=== PATIENT | female | born 1985 | race Two or more races ===

== ENCOUNTER 2016-12-15 15:40 | Emergency (ER) | payer OTHER ==
--- NOTE | 2016-12-15 17:01 | ER Document Report ---
ED Medical Screen (RME) - General Chief Complaint: Headache Stated Complaint: CHEST PAIN Time seen by provider: 16:56 Mode of Arrival: Ambulatory Information source: Patient Notes: 31-year-old female complaining of confusion (slow processing of talking and direction to walk) at 10 am while she was at [facility]. Vision is a little blurred, very tired, left flank pain (3:30 pm), tight sharp chest discomfort (1 pm), frontal headache., Yawning, frequent hiccups.. No fever or chills. No cough. No dysuria. lLMP: yesterday. ETOH 4-5 times a week- 2 glasses of wine last night. Smokes marijuana. Went to [facility] to get checked there but they sent her here because they didn't have the ability to do blood work test. I have greeted and performed a rapid initial assessment of this patient. A comprehensive ED assessment, evaluation of the patient, analysis of test results , and completion of the medical decision making process will be conducted by additional ED providers. - Related Data Allergies/Adverse Reactions: No Known Allergies Allergy (Unverified 05/14/14 18:13) Past Medical History Psychiatric Medical History: Reports: Hx Anxiety, Hx Depression - Immunizations Hx Diphtheria, Pertussis, Tetanus Vaccination: Yes Physical Exam - Vital signs Vitals: Temp Pulse Resp BP Pulse Ox 98.7 F 81 14 117/77 97 12/15/16 15:44 12/15/16 15:44 12/15/16 15:44 12/15/16 15:44 12/15/16 15:44 Course - Vital Signs Vital signs: Temp Pulse Resp BP Pulse Ox 98.7 F 81 14 117/77 97 12/15/16 15:44 12/15/16 15:44 12/15/16 15:44 12/15/16 15:44 12/15/16 15:44
[2016-12-15 18:26] LABS: ABSOLUTE BASOPHILS # (AUTO) 0.1 10^3/uL (0.0-0.2); ABSOLUTE EOSINOPHILS # (AUTO) 0.3 10^3/uL (0.0-0.6); ABSOLUTE LYMPHOCYTES (AUTO) 3.7 10^3/uL (0.5-4.7); ABSOLUTE MONOCYTES (AUTO) 0.8 10^3/uL (0.1-1.4); ABSOLUTE NEUT (AUTO) 2.7 10^3/uL (1.7-8.2); BASOPHILS % (AUTO) 1.3 % (0-2); EOSINOPHILS % (AUTO) 3.6 % (0-6); HEMATOCRIT 44.1 % (36.0-47.0); HEMOGLOBIN 15.5 g/dL (12.0-15.5); HGB HCT DIFFERENCE 2.4; LYMPHOCYTES % (AUTO) 48.6 % (13-45); MEAN CORPUSCULAR HEMOGLOBIN 29.1 pg (27.0-33.4); MEAN CORPUSCULAR HGB CONC 35.2 g/dL (32.0-36.0); MEAN CORPUSCULAR VOLUME 83 fl (80-97); MONOCYTES % (AUTO) 10.6 % (3-13); RED BLOOD COUNT 5.34 10^6/uL (3.72-5.28); RED CELL DISTRIBUTION WIDTH 12.8 % (11.5-14.0); SEGMENTED NEUTROPHILS % (AUTO) 35.9 % (42-78); WHITE BLOOD COUNT 7.6 10^3/uL (4.0-10.5)
[2016-12-15 18:45] LABS: ALANINE AMINOTRANSFERASE 31 U/L (9-52); ALKALINE PHOSPHATASE 56 U/L (38-126); ANION GAP 13 (5-19); ASPARTATE AMINO TRANSFERASE 31 U/L (14-36); BILIRUBIN,DIRECT 0.2 mg/dL (0.0-0.4); BILIRUBIN,TOTAL 0.7 mg/dL (0.2-1.3); BLOOD UREA NITROGEN 8 mg/dL (7-20); CALCIUM 10.2 mg/dL (8.4-10.2); CARBON DIOXIDE 38 mmol/L (22-30); CHLORIDE 86 mmol/L (98-107); CREATINE KINASE 71 U/L (30-135); CREATININE RESULT 0.84 mg/dL (0.52-1.25); GLUCOSE 97 mg/dL (75-110); LIPASE 83.7 U/L (23-300); POTASSIUM 3.1 mmol/L (3.6-5.0); SODIUM 137.3 mmol/L (137-145); TOTAL PROTEIN 8.6 g/dL (6.3-8.2)
[2016-12-15 18:47] LABS: APPEARANCE,URINE CLEAR; BILIRUBIN,URINE NEGATIVE (NEGATIVE); GLUCOSE, URINE NEGATIVE (NEGATIVE); KETONES,URINE NEGATIVE (NEGATIVE); LEUKOCYTE ESTERASE,URINE NEGATIVE (NEGATIVE); NITRITE,URINE NEGATIVE (NEGATIVE); PROTEIN,URINE 30 mg/dL (NEGATIVE); URINE BARBITURATES SCREEN NEGATIVE; URINE METHADONE SCREEN NEGATIVE; URINE OPIATES LOW NEGATIVE; URINE PHENCYCLIDINE SCREEN NEGATIVE; URINE SPECIFIC GRAVITY 1.011; UROBILINOGEN,URINE NEGATIVE mg/dL (<2.0)
[2016-12-15 18:57] LABS: CREATINE KINASE MB < 0.22 ng/mL (<4.55); TROPONIN I < 0.012 ng/mL
[2016-12-15] MEDS ORDERED: NORMAL SALINE 1000 ML 1,000 ML IV ONE (19:25)
[2016-12-15] MEDS ORDERED: POTASSIUM CHLORIDE 20 MEQ/15 ML UDCUP PO ONE (19:26)
--- NOTE | 2016-12-15 20:34 | ER Document Report ---
ED General - General Chief Complaint: Shortness Of Breath Stated Complaint: CHEST PAIN Mode of Arrival: Ambulatory Information source: Patient Notes: 31 y/o well appearing F presents to ED c/o generalized weakness and fatigue since this morning. Pt reports noted symptoms this morning while at work. States she felt tired, fatigued, and unsteady on her feet. Reports had associated mild headache and blurred vision. States headache and blurred vision has resolved and rest of symptoms are much better but still feels fatigued. Reports hx of anxiety not on medication and states has been having more frequent attacks but does not feel like she is having one today. Denies fever, difficulty breathing, chest pain, n/v. States started her menstrual period yesterday and is unsure if symptoms may be due to that. TRAVEL OUTSIDE OF THE [place] IN LAST 30 DAYS: No - HPI Onset: This morning Onset/Duration: Gradual Quality of pain: No pain Similar symptoms previously: Yes Recently seen / treated by doctor: No - Related Data Allergies/Adverse Reactions: No Known Allergies Allergy (Unverified 05/14/14 18:13) Past Medical History - General Information source: Patient - Social History Smoking Status: Current Every Day Smoker Cigarette use (# per day): Yes - 10 cigarettes per day Frequency of alcohol use: 3 drinks per day Drug Abuse: Marijuana Lives with: Family Family History: Reviewed & Not Pertinent Patient has suicidal ideation: No Patient has homicidal ideation: No Renal/ Medical History: Denies: Hx Peritoneal Dialysis Psychiatric Medical History: Reports: Hx Anxiety, Hx Depression Surgical Hx: Negative - Immunizations Hx Diphtheria, Pertussis, Tetanus Vaccination: Yes Review of Systems - Review of Systems Constitutional: See HPI EENT: No symptoms reported Cardiovascular: No symptoms reported Respiratory: No symptoms reported Gastrointestinal: No symptoms reported Genitourinary: No symptoms reported Female Genitourinary: No symptoms reported Musculoskeletal: No symptoms reported Skin: No symptoms reported Hematologic/Lymphatic: No symptoms reported Neurological/Psychological: See HPI -: Yes All other systems reviewed and negative Physical Exam - Vital signs Vitals: Temp Pulse Resp BP Pulse Ox 98.7 F 81 14 117/77 97 12/15/16 15:44 12/15/16 15:44 12/15/16 15:44 12/15/16 15:44 12/15/16 15:44 Interpretation: Normal - General General appearance: Appears well, Alert In distress: None - HEENT Head: Normocephalic, Atraumatic Eyes: Normal Conjunctiva: Normal Extraocular movements intact: Yes Eyelashes: Normal Pupils: PERRL Ears: Normal External canal: Normal Tympanic membrane: Normal Sinus: Normal Nasal: Normal Mouth/Lips: Normal Mucous membranes: Normal, Moist Pharynx: Normal. No: Blood in hypopharynx, Erythema, Exudate, Peritonsillar abscess, Post nasal drainage, Retropharyngeal abscess, Tonsillar hypertrophy, Uvular edema, Potential airway comprom., Other Neck: Normal. No: Anterior cervical chain, Posterior cervical chain, Lymphadenopathy, Meningismus, Subcutaneous emphysema - Respiratory Respiratory status: No respiratory distress Chest status: Nontender Breath sounds: Normal - CTAB Chest palpation: Normal - Cardiovascular Rhythm: Regular Heart sounds: Normal auscultation Murmur: No Pulses: Normal: Radial Normal capillary refill: Yes - Abdominal Inspection: Normal Distension: No distension Bowel sounds: Normal Tenderness: Nontender Organomegaly: No organomegaly - Back Back: Normal, Nontender. No: CVA tenderness - Extremities General upper extremity: Normal inspection, Nontender, Normal color, Normal ROM , Normal strength, Normal temperature. No: Tender, Edema General lower extremity: Normal inspection, Normal color, Normal ROM, Normal strength, Normal temperature, Normal weight bearing. No: Tender, Edema, Georgina' s sign - Neurological Neuro grossly intact: Yes Cognition: Normal Orientation: AAOx4 [place] Coma Scale Eye Opening: Spontaneous [place] Coma Scale Verbal: Oriented [place] Coma Scale Motor: Obeys Commands Mono Coma Scale Total: 15 Speech: Normal Cranial nerves: Normal Cerebellar coordination: Normal Motor strength normal: LUE, RUE, LLE, RLE Additional motor exam normals: Equal valet Sensory: Normal - Psychological Associated symptoms: Normal affect, Normal mood - Skin Skin Temperature: Warm Skin Moisture: Dry Skin Color: Normal Course - Re-evaluation Re-evalutation: 12/15/16 20:35 Patient very well-appearing, neurologically intact, hemodynamically stable, in no distress, afebrile, nontoxic, and appears well-hydrated. Mild hypokalemia on labs otherwise unremarkable. Chest x-ray with no significant or emergent findings and EKG shows sinus rhythm unchanged from previous 3 years ago. Patient is very well-appearing with nonspecific/vague symptoms not suggestive of emergent neurologic, vascular, or infectious etiology at this time. Pt presentation and findings were discussed with ED physician Dr. Dominique who recommends PO potassium supplementation in ED and follow-up with pcp this week. Patient appears stable for discharge and agrees with home care, follow-up, and ED return precautions. - Vital Signs Vital signs: Temp Pulse Resp BP Pulse Ox 98 F 72 14 110/66 98 12/15/16 21:00 12/15/16 21:00 12/15/16 21:00 12/15/16 21:00 12/15/16 21:00 - Laboratory Result Diagrams: 12/15/16 18:12 12/15/16 18:12 Laboratory results interpreted by me: 12/15/16 12/15/16 12/15/16 18:12 18:12 18:12 RBC 5.34 H Seg Neutrophils % 35.9 L Lymphocytes % 48.6 H Potassium 3.1 L Chloride 86 L Carbon Dioxide 38 H Total Protein 8.6 H Urine Protein 30 H Urine Blood MODERATE H Urine Ascorbic Acid 40 H - Diagnostic Test Radiology reviewed: Image reviewed, Reports reviewed - EKG Interpretation by Me EKG shows normal: Sinus rhythm, [place], Intervals, QRS Complexes, ST-T Waves Rate: Normal Rhythm: NSR When compared to previous EKG there are: No significant change Discharge - Discharge Clinical Impression: Hypokalemia Condition: Stable Disposition: HOME, SELF-CARE Instructions: Hypokalemia ([facility]), Weakness ([facility]), Family Physicians / Practices Additional Instructions: Drink plenty of fluids. Eat a diet with plenty of foods high in potassium. Follow-up with your primary care provider this week. Return to the Emergency Department for any worsening symptoms or concerns. Forms: Return to Work
[2016-12-15 21:22] VITALS: BP 110/66
--- NOTE | 2016-12-16 00:17 | EKG REPORT ---
SEVERITY:- NORMAL ECG - SINUS RHYTHM : Confirmed by: Sara Tidwell 16-Dec-2016 00:16:17
== END 2016-12-15 21:00 | disposition home or self-care (01) ==
LOC: ER 15:40
DX: E87.6 Hypokalemia (principal); R53.1 Weakness; R53.83 Other fatigue; R26.81 Unsteadiness on feet; F17.210 Nicotine dependence, cigarettes, uncomplicated
CPT/HCPCS: 36415; 71020; 80053; 80307; 81001; 82550; 82553; 83690; 84484; 84703; 85025; 87086; 87088; 87186; 93005; 93010; 99285

== ENCOUNTER → 2017-02-23 | Outpatient (CLI) | payer OTHER ==
[2017-02-23 10:33] LABS: ABSOLUTE BASOPHILS # (AUTO) 0.1 10^3/uL (0.0-0.2); ABSOLUTE EOSINOPHILS # (AUTO) 0.2 10^3/uL (0.0-0.6); ABSOLUTE LYMPHOCYTES (AUTO) 2.7 10^3/uL (0.5-4.7); ABSOLUTE MONOCYTES (AUTO) 0.7 10^3/uL (0.1-1.4); ABSOLUTE NEUT (AUTO) 4.6 10^3/uL (1.7-8.2); BASOPHILS % (AUTO) 1.5 % (0-2); EOSINOPHILS % (AUTO) 2.1 % (0-6); HEMATOCRIT 44.1 % (36.0-47.0); HEMOGLOBIN 14.5 g/dL (12.0-15.5); HGB HCT DIFFERENCE -0.6; MEAN CORPUSCULAR HEMOGLOBIN 28.4 pg (27.0-33.4); MEAN CORPUSCULAR HGB CONC 32.9 g/dL (32.0-36.0); MEAN CORPUSCULAR VOLUME 86 fl (80-97); MONOCYTES % (AUTO) 8.4 % (3-13); RED BLOOD COUNT 5.11 10^6/uL (3.72-5.28); RED CELL DISTRIBUTION WIDTH 13.1 % (11.5-14.0); WHITE BLOOD COUNT 8.3 10^3/uL (4.0-10.5)
[2017-02-23 11:03] LABS: ALANINE AMINOTRANSFERASE 36 U/L (9-52); ALBUMIN 4.3 g/dL (3.5-5.0); ALKALINE PHOSPHATASE 58 U/L (38-126); ANION GAP 12 (5-19); ASPARTATE AMINO TRANSFERASE 30 U/L (14-36); BILIRUBIN,DIRECT 0.3 mg/dL (0.0-0.4); BILIRUBIN,TOTAL 0.5 mg/dL (0.2-1.3); BLOOD UREA NITROGEN 6 mg/dL (7-20); CALCIUM 9.4 mg/dL (8.4-10.2); CARBON DIOXIDE 28 mmol/L (22-30); CHLORIDE 102 mmol/L (98-107); CHOLESTEROL 134.01 mg/dL (0-200); CREATININE RESULT 0.69 mg/dL (0.52-1.25); Direct HDL 48 mg/dL (>40); GLUCOSE 79 mg/dL (75-110); MAGNESIUM 2.1 mg/dL (1.6-2.3); POTASSIUM 4.4 mmol/L (3.6-5.0); SODIUM 141.9 mmol/L (137-145); TOTAL PROTEIN 7.5 g/dL (6.3-8.2); TRIGLYCERIDES 145 mg/dL (<150)
[2017-02-23 11:14] LABS: DIRECT LDL 54 mg/dL (<100)
== END ==
LOC: OD 09:52
PROVIDERS: ATTEND Family Medicine Geriatric Medicine
DX: R53.83 Other fatigue (principal); E87.6 Hypokalemia; F41.9 Anxiety disorder, unspecified; F32.9 Major depressive disorder, single episode, unspecified; Z79.899 Other long term (current) drug therapy
CPT/HCPCS: 36415; 80053; 80061; 83735; 84443; 85025

== ENCOUNTER → 2017-02-25 | Outpatient (CLI) | payer OTHER | LOC: OD 13:12 | PROVIDERS: ATTEND Family Medicine Geriatric Medicine | DX: R94.6 Abnormal results of thyroid function studies (principal); Z79.899 Other long term (current) drug therapy | CPT/HCPCS: 36415; 84443 ==

== ENCOUNTER → 2017-09-29 | Outpatient (CLI) | payer BC ==
--- NOTE | 2017-09-29 13:17 | RADIOLOGY REPORT (SQ) ---
EXAM DESCRIPTION: LUMBAR SPINE COMPLETE COMPLETED DATE/TIME: 09/29/2017 11:36 am REASON FOR STUDY: LOW BACK PAIN M54.5 LOW BACK PAIN COMPARISON: None. NUMBER OF VIEWS: Five views including obliques. TECHNIQUE: AP, lateral, oblique, and sacral radiographic images acquired of the lumbar spine. LIMITATIONS: None. FINDINGS: MINERALIZATION: Normal. SEGMENTATION: Normal. No transitional anatomy. ALIGNMENT: Normal. VERTEBRAE: Maintained height. No fracture or worrisome bone lesion. DISCS: Preserved height. No significant osteophytes or end plate irregularity. POSTERIOR ELEMENTS: Pedicles and facets are intact. No pars defect or posterior arch defects. There is mild left facet arthropathy at L4-5 HARDWARE: None in the spine. PARASPINAL SOFT TISSUES: Normal. PELVIS: Intact as visualized. No fractures or worrisome bone lesions. SI joints intact. OTHER: No other significant finding. IMPRESSION: Lower lumbar facet arthropathy on the left at L4-5 TECHNICAL DOCUMENTATION: JOB ID: [id number] [employer]- All Rights Reserved
== END ==
LOC: OD 11:20
PROVIDERS: ATTEND Family Medicine
DX: M54.5 Low back pain (principal); M12.88 Other specific arthropathies, not elsewhere classified, other specified site
CPT/HCPCS: 72110

== ENCOUNTER 2020-08-17 10:42 | Emergency (ER) | payer BC, OTHER ==
[2020-08-17] MEDS ORDERED: ADENOSINE INJ/PF 6 MG/2 ML SDV IV ONE ×2 (11:10→11:16)
--- NOTE | 2020-08-17 11:16 | EKG REPORT ---
SEVERITY:- ABNORMAL ECG - SUPRAVENTRICULAR TACHYCARDIA ST DEPRESSION, PROBABLY RATE RELATED : Confirmed by: Patrick Colbert MD 17-Aug-2020 11:16:12
[2020-08-17] MEDS ORDERED: NORMAL SALINE 1000 ML 1,000 ML IV ONE (11:17)
--- NOTE | 2020-08-17 12:05 | ER Document Report ---
Entered by TEX ONEAL SCRIBE 08/17/20 1109 Acting as scribe for:PHONG GONZALEZ MD ED Cardiac - General Chief Complaint: Irregular Pulse Stated Complaint: FAST/IRREGULAR HEART RATE Time Seen by Provider: 08/17/20 10:51 Primary Care Provider: LEVAR CHACON MD [ACTIVE STAFF] - Follow up as needed Mode of Arrival: Ambulatory Information source: Patient Notes: This 35 year old female patient presents to the emergency department today with complaints of a heart racing sensation which began 1 hour prior to arrival. Patient states that she has had episodes like this in the past but mentions that they have all resolved without medical care, never lasting longer than 1 hour. Patient denies excessive caffeine usage. TRAVEL OUTSIDE OF THE [place] IN LAST 30 DAYS: No - Related Data Allergies/Adverse Reactions: No Known Allergies Allergy (Unverified 05/14/14 18:13) Past Medical History - General Information source: Patient - Social History Smoking Status: Current Every Day Smoker Cigarette use (# per day): Yes Frequency of alcohol use: Social - two glasses of wine daily Occupation: car sales Lives with: Family Family History: Reviewed & Not Pertinent Psychiatric Medical History: Reports: Hx Anxiety, Hx Depression Surgical Hx: Negative - Immunizations Hx Diphtheria, Pertussis, Tetanus Vaccination: Yes Review of Systems - Review of Systems Constitutional: No symptoms reported EENT: No symptoms reported Cardiovascular: See HPI, Palpitations, Heart racing Respiratory: No symptoms reported Gastrointestinal: No symptoms reported Genitourinary: No symptoms reported Female Genitourinary: No symptoms reported Musculoskeletal: No symptoms reported Skin: No symptoms reported Hematologic/Lymphatic: No symptoms reported Neurological/Psychological: No symptoms reported -: Yes All other systems reviewed and negative Physical Exam - Notes Notes: Physical Exam: General: Alert, appears well. HEENT: Normocephalic. Atraumatic. PERRL. Extraocular movements intact. Oropharynx clear. Neck: Supple. Non-tender. Respiratory: No respiratory distress. Clear and equal breath sounds bilaterally. Cardiovascular: Tachycardic in the 190s. Abdominal: Normal Inspection. Non-tender. No distension. Normal Bowel Sounds. Back: No gross abnormalities. Extremities: Moves all four extremities. Upper extremities: Normal inspection. Normal ROM. Lower extremities: Normal inspection. No edema. Normal ROM. Neurological: Normal cognition. AAOx4. Normal speech. Psychological: Normal affect. Normal Mood. Skin: Warm. Dry. Normal color. Course - Re-evaluation Re-evalutation: 08/17/20 11:17 Patient was given Adenocard 6 mg IV push, she converted to a sinus tachycardia and currently her rate is 106. 08/17/20 12:07 Patient remains in sinus rhythm. Heart rate is 104. She states she feels fine and is anxious to leave to go back to work. 08/17/20 12:42 I had the nurse stand the patient up she how well she tolerated it. Her heart rate went up to 122, and she felt a little lightheaded. We will give her an additional liter of fluid and then reevaluate. - EKG Interpretation by Me EKG shows normal: Sinus rhythm, [place], Intervals, QRS Complexes, ST-T Waves Rate: Tachycardia Rhythm: SVT Discharge - Discharge Clinical Impression: Supraventricular tachycardia Condition: Stable Disposition: HOME, SELF-CARE Additional Instructions: Palpitations (Irregular/Rapid Heartrate): Irregular or rapid heartbeat is called "palpitation." To diagnose the cause of palpitation, we have to "catch it in the act" with an EKG. Sinus Tachycardia: This is a rapid (but NORMAL) rhythm that can be due to fever, pain, anxiety, lack of sleep, over-exertion, or drugs. Cold medications, caffeine, and diet pills are particularly likely to cause tachycardia. Usually, all that's required is rest, reassurance, and avoiding caffeine, alcohol, nicotine, and unnecessary medicines. Paroxysmal Atrial Tachycardia (PAT) also called Supraventricular Tachycardia(SVT): This abnormally rapid heartbeat is caused by a "short circui t" in the electrical system of the heart. It is not dangerous, unless other heart disease is present. These attacks of PAT/SVT may occur occasionally for years. Medication is available for treatment. Be sure to drink plenty of fluids today. Try to avoid caffeine. Get plenty of sleep at nighttime. You can try a Valsalva technique like we discussed if you have another episode of the fast heart rate. Follow-up with a local primary care provider or with a local twisting machine operator if you continue having these episodes. Dr. Levar Chacon is the twisting machine operator on-call today and his contact information will be provided. RETURN TO THE EMERGENCY ROOM IF ANY NEW OR WORSENING SYMPTOMS. Referrals: LEVAR CHACON MD [ACTIVE STAFF] - Follow up as needed I personally performed the services described in the documentation, reviewed and edited the documentation which was dictated to the scribe in my presence, and it accurately records my words and actions.
[2020-08-17] MEDS ORDERED: RINGERS SOLUTION,LACTATED 1,000 ML IV ONE ×2 (12:37→12:41)
--- NOTE | 2020-08-17 13:42 | EKG REPORT ---
SEVERITY:- OTHERWISE NORMAL ECG - SINUS TACHYCARDIA : Confirmed by: Patrick Colbert MD 17-Aug-2020 13:41:06
== END 2020-08-17 15:16 | disposition home or self-care (01) ==
LOC: ER 10:42
DX: I47.1 Supraventricular tachycardia (principal); R00.2 Palpitations; F17.210 Nicotine dependence, cigarettes, uncomplicated
CPT/HCPCS: 93005; 99284; 96361; 96374; 93010; J7030; J7120; J0153